=== PATIENT | male | born 1940 | race Caucasian/White ===

== ENCOUNTER → 2016-03-09 | Outpatient (CLI) | payer OTHER, MEDICARE ==
[~2016-03-09] MED LIST: ASPCH81X PO; ASPEC81; CALC500C3 PO; CHOL20009 PO; CORN1POW2 PO; HYDR25SU4 RE; METR0.7527 EXT; MULT-506 PO; MULTIVIT; MYLANTA; OMEG10007 PO; OMEP20CA9 PO; PRILOSEC; SIMV40TA2 PO; VIAGRA
--- NOTE | 2016-03-09 14:58 | DIAGNOSTIC IMAGING REPORT ---
CHEST 2 VIEWS ROUTINE CLINICAL HISTORY: Left sided chest pain. COMPARISON STUDY: No previous studies for comparison. FINDINGS: Lung volumes are normal. No consolidation is identified. Biapical opacities are noted. Mild interstitial thickening is noted. Cardiac size is normal. Mediastinal contours are normal. IMPRESSION: 1. Biapical opacities. The appearance favors scarring. If persistent unexplained left-sided chest pain, a chest CT could be obtained although the findings are likely chronic. 2. Mild age indeterminate interstitial thickening. Electronically signed by: Herminio Espinoza M.D. 03/09/2016 2:57 PM
[2016-03-09 15:30] LABS: BASO % 0.4 %; BASO ABS # 0.03 K/uL (0-0.2); COMPLETE YES; EOS % 5.1 %; HEMATOCRIT 40.5 % (42-52); IG% 0.1 %; LYMPH ABS # 2.29 K/uL (1.2-3.4); MEAN CELL VOLUME 100.7 fL (80-100); MEAN CORPUSCULAR HEMOGLOBIN 35.1 pg (25-34); MEAN CORPUSCULAR HGB CONC 34.8 g/dl (32-36); MONO % 9.2 %; NEUT % 56.2 %; PLATELET COUNT 175 K/uL (130-400); RED BLOOD COUNT 4.02 M/uL (4.7-6.1); WHITE BLOOD COUNT 7.91 K/uL (4.8-10.8)
== END | disposition home or self-care (01) ==
LOC: C.LAB1850 14:22
PROVIDERS: ATTEND Family Medicine
DX: R07.9 Chest pain, unspecified (principal); R91.8 Other nonspecific abnormal finding of lung field

== ENCOUNTER → 2016-03-12 | Outpatient (CLI) | payer OTHER, MEDICARE ==
[2016-03-12 14:14] LABS: BLOOD UREA NITROGEN 16 mg/dl (7-18)
== END | disposition home or self-care (01) ==
LOC: C.LABBC 11:18
PROVIDERS: ATTEND Family Medicine
DX: R07.9 Chest pain, unspecified (principal)

== ENCOUNTER → 2016-03-16 | Outpatient (CLI) | payer OTHER, MEDICARE ==
--- NOTE | 2016-03-16 14:05 | DIAGNOSTIC IMAGING REPORT ---
CT SCAN OF THE CHEST WITH IV CONTRAST CLINICAL HISTORY: Atypical chest pain. COMPARISON STUDY: Chest x-ray dated 03/09/2016. TECHNIQUE: Following the IV administration of 93 cc of Optiray 320, CT scan of the thorax was performed from the thoracic inlet to the upper abdomen. Images are reviewed in the axial, sagittal, and coronal planes. IV contrast was administered without complication. CT DOSE: 319.10 mGycm FINDINGS: Thyroid: Imaged portions of the thyroid gland are normal in size and attenuation. Thoracic aorta: The thoracic aorta is normal in caliber and demonstrates standard 3-vessel arch anatomy. No aneurysm or dissection is seen. Pulmonary vasculature: The pulmonary trunk is normal in caliber. There are no filling defects identified in the central pulmonary vessels to indicate pulmonary embolus. Note that this examination was not protocoled for evaluation of the pulmonary arteries. Heart: The heart is normal in size and configuration, and without pericardial effusion. Lungs and pleural spaces: There is no airspace consolidation or pleural effusion. Biapical scarring is observed. There is diffuse subpleural reticulation with an upper lobe predominance. No honeycombing or traction bronchiectasis is identified. There are scattered tiny calcified granulomas. The trachea and central airways are clear. Mediastinum: There is no mediastinal lymphadenopathy. Anisa: Clear. Axillae: There is no axillary lymphadenopathy. Upper abdomen: Partially visualized upper abdominal viscera is within normal limits. Skeletal structures: The skeletal structures are osteopenic. Degenerative change and mild scoliosis are noted in the thoracic spine. No lytic or blastic bony lesions are seen. IMPRESSION: 1. No acute cardiopulmonary abnormality is identified. 2. 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 Correlation with pulmonary function studies is recommended. 3. Apical scarring is unchanged from the recent radiographic assessment. Electronically signed by: Hitesh Hernadez M.D. 03/16/2016 2:04 PM Dictated Date/Time: 03/16/2016 1:47 PM
== END | disposition home or self-care (01) ==
LOC: C.CTS 13:06
PROVIDERS: ATTEND Family Medicine
DX: R07.9 Chest pain, unspecified (principal); R93.8 Abnormal findings on diagnostic imaging of other specified body structures

== ENCOUNTER → 2016-03-31 | Outpatient (CLI) | payer OTHER, MEDICARE ==
[2016-03-31 12:09] LABS: LYME DISEASE AB IGG NEG (NEG); LYME DISEASE AB IGM NEG (NEG)
== END | disposition home or self-care (01) ==
LOC: C.LAB1850 10:07
PROVIDERS: ATTEND Internal Medicine Pulmonary Disease
DX: J84.89 Other specified interstitial pulmonary diseases (principal)

== ENCOUNTER → 2016-06-12 | Outpatient (CLI) | payer OTHER, MEDICARE ==
[2016-06-12 11:45] LABS: BASO % 0.5 %; BASO ABS # 0.04 K/uL (0-0.2); COMPLETE YES; EOS % 8.1 %; HEMATOCRIT 39.1 % (42-52); IG% 0.1 %; LYMPH % 29.8 %; LYMPH ABS # 2.32 K/uL (1.2-3.4); MEAN CELL VOLUME 99.7 fL (80-100); MEAN CORPUSCULAR HEMOGLOBIN 35.5 pg (25-34); MEAN CORPUSCULAR HGB CONC 35.5 g/dl (32-36); MONO % 11.1 %; NEUT % 50.4 %; PLATELET COUNT 179 K/uL (130-400); RED BLOOD COUNT 3.92 M/uL (4.7-6.1); WHITE BLOOD COUNT 7.78 K/uL (4.8-10.8)
[2016-06-12 12:19] LABS: ALB/GLOB RATIO 1.1 (0.9-2); ALKALINE PHOSPHATASE 68 U/L (45-117); ALT/SGPT 32 U/L (12-78); AST/SGOT 30 U/L (15-37); BLOOD UREA NITROGEN 17 mg/dl (7-18); BUN/CREATININE RATIO 13.9 (10-20); CALCIUM 9.8 mg/dl (8.5-10.1); CARBON DIOXIDE 27 mmol/L (21-32); CHLORIDE 107 mmol/L (98-107); CHOLESTEROL 130 mg/dl (0-200); CHOLESTEROL/HDL RATIO 2.2; GLUCOSE 103 mg/dl (70-99); HDL CHOLESTEROL 58 mg/dl; LDL CHOLESTEROL CALCULATED 57 mg/dl; POTASSIUM 4.2 mmol/L (3.5-5.1); SODIUM 141 mmol/L (136-145); TRIGLYCERIDES 77 mg/dl (0-150); VERY LOW DENSITY LIPOPROT CALC 15 mg/dl
[2016-06-12 12:54] LABS: ESTIMATED AVERAGE GLUCOSE 128 mg/dl; HA1C FLAG Normal (Normal)
--- NOTE | 2016-06-17 11:01 | CODING QUERY MEDICAL NECESSITY ---
SUPPORTING DIAGNOSIS NEEDED Dr. Ball, A supporting diagnosis is required for the test/procedure performed on this patient in order for us to be reimbursed by the patient's insurance. Please provide a supporting diagnosis for the following test/procedure listed below next to the test name along with your signature. *If there is no additional diagnosis for this patient that would support the following test/procedure please document that below next to the test/procedure. Test(s)/Procedure(s) that require a supporting diagnosis: * [id number] GLYCATED HEMOGLOBIN DIAGNOSIS: DATE OF SERVICE: 06/12/16 Provider Signature: Date: Thank you Gilberto Peñaloza [facility] Once completed, please kindly fax back to [phone] For questions please call [phone]
== END | disposition home or self-care (01) ==
LOC: C.LABBC 07:42
PROVIDERS: ATTEND Internal Medicine
DX: R73.03 Prediabetes (principal); R00.0 Tachycardia, unspecified; E78.5 Hyperlipidemia, unspecified

== ENCOUNTER → 2016-07-30 | Day surgery (SDC) | payer OTHER, MEDICARE ==
[2016-07-16 08:39] VITALS: BMI 22.0
[~2016-07-30] VITALS: Ht 177.8 cm; Wt 70.5 kg
[~2016-07-30] MED LIST changes: -ASPEC81; +ATROPINE SULFATE 0.1 MG/ML 5ML SYR IV PRN; +EpHEDrine SULFATE INJ 50 MG/ML AMP IV PRN; +LIDOCAINE HCL 2% 2 ML VIAL (20MG/ML) ONE; +MIDAZOLAM HCL 1 MG/ML 2ML VIAL ONE; -MULTIVIT; -MYLANTA; +ONDANSETRON INJ 2 MG/ML 2 ML VIAL ONE; -PRILOSEC; +PROPOFOL IV EMULSION 10 MG/ML 20 ML VIAL IV ONE; +SODIUM CHLORIDE 0.9% 500ML 500 ML IV ONE; -VIAGRA
[2016-07-30 12:31] VITALS: Ht 177.8 cm; Wt 70.5 kg
--- NOTE | 2016-07-30 13:43 | Endo History and Physical ---
History & Physical Date of Service: July 30, 2016. Chief Complaint: screening Referring Physician: Dr. Ball History of Present Illness 76 yo CM who presents for screening colonoscopy. Past Surgical History Hx Cardiac Surgery: No Hx Internal Defibrillator: No Hx Pacemaker: No Hx Abdominal Surgery: Yes (RT/LEFT INGUINAL HERNIA) Hx of Implantable Prosthesis: No Hx Post-Op Nausea and Vomiting: No Hx Cancer Surgery: No Hx Thoracic Surgery: No Hx Orthopedic: No Hx Urinary Tract Surgery: No Family History None Social History Smoking Status: Former Smoker Hx Substance Use: No Hx Alcohol Use: Yes (A BEER DAILY) Allergies Coded Allergies: No Known Allergies (Verified , 07/30/16) Current Medications Reported Home Medications Medications Dose Route/Sig Max Daily Dose Days Date Category Fiber Powder ([place] Dextrin) 1 Pow Pow 1 Tsp PO BID 07/16/16 Reported Metrogel (Metronidazole (Topical)) 0.75 % Gel 1 Dose EXT HS 07/16/16 Reported Zocor (Simvastatin) 40 Mg Tab 40 Mg PO HS 07/16/16 Reported Prilosec (Omeprazole) 20 Mg Cap 20 Mg PO Q2D 07/16/16 Reported Hydrocortisone Acetate (Hydrocortisone Acetate (Rectal) 25 Mg Sup 1 Dose RE HS 07/16/16 Reported Tums (Calcium Carbonate) 500 Mg Chew 1 Tab PO QPM 07/16/16 Reported Multivitamin (Multivitamins) Tab 1 Tab PO QAM 07/16/16 Reported Lovilia-3 (Fish Oil) 1 Ea Cap 1 Cap PO DAILY AT LUNCH 07/16/16 Reported Vitamin D (Cholecalciferol) 2,000 Unit Tab 1 Tab PO DAILY AT LUNCH 07/16/16 Reported Aspirin Chewable (Aspirin) 81 Mg Chew 81 Mg PO QAM 07/16/16 Reported Vital Signs Weight (Kilograms): 70.45 Height (Feet): 5 Height (Inches): 10 Date Time Temp Pulse Resp B/P Pulse Ox O2 Delivery O2 Flow Rate FiO2 07/30/16 12:38 36.8 88 18 167/73 98 Room Air Physical Exam General Appearance: WD/WN, no apparent distress Respiratory/Chest: Auscultation: breath sounds normal Cardiovascular: Heart Auscultation: RRR Abdomen: Bowel Sounds: normal Inspection & Palpation: soft, non-distended, no tenderness, guarding & rebound Assessment and Plan Assessment: 76 yo CM who presents for screening colonoscopy. Plan: Proceed with colonoscopy.
--- NOTE | 2016-07-30 14:00 | Discharge Instructions ---
Endoscopy Patient Instructions Date / Procedure(s) Performed July 30, 2016. Colonoscopy Allergy Information Coded Allergies: No Known Allergies (Verified , 07/30/16) Discharge Date / Findings July 30, 2016. Internal hemorrhoids Medication Instructions Stopped Medication(s): nothing taken this am. OK to resume all medications today as prescribed Reported Home Medications Medications Dose Route/Sig Max Daily Dose Days Date Category Fiber Powder ([place] Dextrin) 1 Pow Pow 1 Tsp PO BID 07/16/16 Reported Metrogel (Metronidazole (Topical)) 0.75 % Gel 1 Dose EXT HS 07/16/16 Reported Zocor (Simvastatin) 40 Mg Tab 40 Mg PO HS 07/16/16 Reported Prilosec (Omeprazole) 20 Mg Cap 20 Mg PO Q2D 07/16/16 Reported Hydrocortisone Acetate (Hydrocortisone Acetate (Rectal) 25 Mg Sup 1 Dose RE HS 07/16/16 Reported Tums (Calcium Carbonate) 500 Mg Chew 1 Tab PO QPM 07/16/16 Reported Multivitamin (Multivitamins) Tab 1 Tab PO QAM 07/16/16 Reported [place]-3 (Fish Oil) 1 Ea Cap 1 Cap PO DAILY AT LUNCH 07/16/16 Reported Vitamin D (Cholecalciferol) 2,000 Unit Tab 1 Tab PO DAILY AT LUNCH 07/16/16 Reported Aspirin Chewable (Aspirin) 81 Mg Chew 81 Mg PO QAM 07/16/16 Reported Provider Instructions Activity Restrictions - No exercising or heavy lifting for 24 hours. - Do not drink alcohol the day of the procedure. - Do not drive a car or operate machinery until the day after the procedure. - Do not make any important decisions or sign important papers in 24 hours after the procedure. Following Day: - Return to full activity which may include returning to work/school. Diet Start your diet with liquids and light foods (jello, soup, juice, toast). Then eat your usual diet if not nauseated. Treatment For Common After Affects For mild abdominal pain, bloating, or excessive gas: - Rest - Eat lightly - Lie on right side Follow-Up Information Follow-up with Dr. Ball as scheduled Anesthesia Information What You Should Know You have had a procedure that required some medicine to reduce anxiety and discomfort. This treatment is called moderate sedation. After receiving the treatment, you may be sleepy, but you will be able to breathe on your own. The effects of the treatment may last for several hours. Follow these instructions along with Activity/Diet recommendations noted above: * Do NOT do anything where dizziness or clumsiness would be dangerous. * Rest quietly at home today, then you can be up and about tomorrow. * Have a responsible person stay with you the rest of today. * You may have had an I.V. today. If so, you may take the dressing off later today. Recommendations Call your doctor if: * Trouble breathing * Continuous vomiting for more than 24 hours * Temperature above 101 degrees * Severe abdominal pain or bloating * Pain not relieved by pain medicine ordered * There is increased drainage or redness from any incision * A large amount of rectal bleeding greater than 2-3 tablespoons. (If you had a polyp/s removed or have hemorrhoids, a small amount of blood - from the rectum is to be expected.) * You have any unanswered questions or concerns. IN THE EVENT OF A SERIOUS EMERGENCY, GO TO THE NEAREST EMERGENCY ROOM Your discharge instructions were prepared by provider Darien Dougherty. Patient Instructions Signature Page Ed Castro Patient (or Guardian) Signature/Date: I have read and understand the instructions given to me by my caregivers. Caregiver/RN/Doctor Signature/Date: The above-named patient and/or guardian has received patient instructions on this date. + Original Patient Signature Page (only) stays with chart. Please make copy for patient.
--- NOTE | 2016-07-30 14:05 | GI REPORT ---
Procedure Date: 07/30/2016 1:40 PM THIS REPORT HAS BEEN AMENDED Addendum Number: 1 Addendum Date: 07/30/2016 2:24:04 PM No repeat colonoscopy secondary to patient's age and lack of adenomatous polyps. Procedure: Colonoscopy Indications: Screening for colorectal malignant neoplasm Medicines: Monitored Anesthesia Care Complications: No immediate complications. Estimated Blood Loss: Estimated blood loss: none. Procedure: Pre-Anesthesia Assessment: - Prior to the procedure, a History and Physical was performed, and patient medications and allergies were reviewed. The patient's tolerance of previous anesthesia was also reviewed. The risks and benefits of the procedure and the sedation options and risks were discussed with the patient. All questions were answered, and informed consent was obtained. Prior Anticoagulants: The patient has taken aspirin, last dose was 4 days prior to procedure. ASA Grade Assessment: II - A patient with mild systemic disease. After reviewing the risks and benefits, the patient was deemed in satisfactory condition to undergo the procedure. After I obtained informed consent, the scope was passed under direct vision. Throughout the procedure, the patient's blood pressure, pulse, and oxygen saturations were monitored continuously. The On-site loaner was introduced through the anus and advanced to the terminal ileum. The colonoscopy was performed without difficulty. The patient tolerated the procedure well. The quality of the bowel preparation was good. The terminal ileum, ileocecal valve, appendiceal orifice, and rectum were photographed. Findings: Non-bleeding internal hemorrhoids were found during retroflexion. The hemorrhoids were small. The exam was otherwise without abnormality. Impression: - Non-bleeding internal hemorrhoids. - The examination was otherwise normal. - No specimens collected. Recommendation: - Resume previous diet. - Continue present medications. - Repeat colonoscopy in 10 years for surveillance. - Return to primary care physician as previously scheduled. Darien Radha Dougherty, 07/30/2016 2:04:29 PM This report has been signed electronically. Note Initiated On: 07/30/2016 1:40 PM I attest to the content of the Intraoperative Record and orders documented therein, exceptions below Darien Garcia Farhat, DO 07/30/2016 2:24:32 PM This report has been signed electronically.
--- NOTE | 2016-07-30 14:05 | Anesthesiology Progress Note ---
Anesthesia Post Op Note Date & Time July 30, 2016 at 14:05 Vital Signs Pain Intensity: 0 Vital Signs Past 12 Hours Date Time Temp Pulse Resp B/P Pulse Ox O2 Delivery O2 Flow Rate FiO2 07/30/16 12:38 36.8 88 18 167/73 98 Room Air Notes Mental Status: alert / awake / arousable, participated in evaluation Pt Amnestic to Procedure: Yes Nausea / Vomiting: adequately controlled Pain: adequately controlled Airway Patency, RR, SpO2: stable & adequate BP & HR: stable & adequate Hydration State: stable & adequate Anesthetic Complications: no major complications apparent
[2016-07-30 14:32] VITALS: BP 142/84; PULSE 79; O2SAT 98
== END | disposition home or self-care (01) ==
LOC: C.GI 12:14
PROVIDERS: ATTEND Internal Medicine
DX: Z12.11 Encounter for screening for malignant neoplasm of colon (principal); K64.8 Other hemorrhoids; Z87.891 Personal history of nicotine dependence; Z79.899 Other long term (current) drug therapy

== ENCOUNTER → 2016-08-10 | Outpatient (CLI) | payer OTHER, MEDICARE ==
[~2016-08-10] MED LIST changes: -ATROPINE SULFATE 0.1 MG/ML 5ML SYR IV PRN; -EpHEDrine SULFATE INJ 50 MG/ML AMP IV PRN; -LIDOCAINE HCL 2% 2 ML VIAL (20MG/ML) ONE; -MIDAZOLAM HCL 1 MG/ML 2ML VIAL ONE; -ONDANSETRON INJ 2 MG/ML 2 ML VIAL ONE; -PROPOFOL IV EMULSION 10 MG/ML 20 ML VIAL IV ONE; -SODIUM CHLORIDE 0.9% 500ML 500 ML IV ONE
--- NOTE | 2016-08-10 15:11 | DIAGNOSTIC IMAGING REPORT ---
CT OF THE CHEST WITHOUT IV CONTRAST CLINICAL HISTORY: Abnormal chest radiograph. Nonspecific interstitial pneumonitis. COMPARISON STUDY: Chest radiograph March 09, [address] March 16, 2016. CT DOSE: 269.43 mGycm TECHNIQUE: Axial images of the chest were obtained without IV contrast. Images were reviewed in the axial, sagittal, and coronal planes. IV contrast was not administered for this examination. FINDINGS: No enlarged axillary, mediastinal or hilar lymph nodes are present. The size of the heart is normal. There is no pericardial effusion. Central airways are patent. No pneumothorax or pleural effusion is present. There is diffuse subpleural reticulation without honeycombing or traction bronchiectasis. There is no cavitation. No significant changes noted since CT of March 16, 2016. By apical subpleural opacities favor scarring. This is also unchanged. There is no consolidation to suggest superimposed pneumonia. Bony thorax and upper abdomen are unremarkable on this unenhanced exam. IMPRESSION: 1. No significant change in diffuse subpleural reticulation since CT of March 16, 2016 suggestive of a NSIP pattern. No honeycombing or traction bronchiectasis. 2. No superimposed consolidation. 3. Stable biapical subpleural opacities suggestive of scarring. Electronically signed by: Herminio Espinoza M.D. 08/10/2016 3:10 PM Dictated Date/Time: 08/10/2016 3:01 PM
== END | disposition home or self-care (01) ==
LOC: C.CTS 14:42
PROVIDERS: ATTEND Internal Medicine Critical Care Medicine
DX: J84.89 Other specified interstitial pulmonary diseases (principal); R93.8 Abnormal findings on diagnostic imaging of other specified body structures

== ENCOUNTER → 2016-08-25 | Outpatient (CLI) | payer OTHER, MEDICARE ==
--- NOTE | 2016-08-25 11:07 | DIAGNOSTIC IMAGING REPORT ---
(BARIUM SWALLOW) ESOPHAGUS CLINICAL HISTORY: R91.[address] scan, lungPossible [id number] COMPARISON STUDY: CT scan dated 08/10/2016 FLUOROSCOPY TIME: 1.2 minutes 26 fluoroscopic spot images were acquired.. FINDINGS: The patient swallowed effervescent granules and barium without difficulty. Rapid sequence swallows in the AP and lateral projections reveal penetration but no evidence of aspiration. No esophageal masses or ulcerations are visualized. There is disordered esophageal motility. The patient swallowed one half inch barium tablet which freely passed into the stomach. IMPRESSION: 1. Disordered esophageal motility 2. Penetration but no evidence of aspiration 3. No esophageal masses identified Electronically signed by: Ameya Cruz M.D. 08/25/2016 11:06 AM Dictated Date/Time: 08/25/2016 11:04 AM
== END | disposition home or self-care (01) ==
LOC: C.RAD 10:24
PROVIDERS: ATTEND Internal Medicine Critical Care Medicine
DX: R91.8 Other nonspecific abnormal finding of lung field (principal); K22.9 Disease of esophagus, unspecified